=== PATIENT | male | born 1955 | race Caucasian/White ===

== ENCOUNTER 2024-03-20 12:45 | Outpatient (CLI) | payer MEDICARE, SELFPAY ==
--- NOTE | ~2024-03-20 | MR_ITS ---
EXAMINATION: MR knee RT wo con, MR femur RT wo con DATE: 03/20/2024 14:20 INDICATION: Right leg and knee pain and swelling post injury TECHNIQUE: Line 1. Magnetic resonance imaging (MRI) of the right femur was performed without intravenous contrast. Se quences included axial, sagittal and coronal T1-weighted FSE and fluid sensitive FSE STIR. 2. MRI of the right knee was performed without intravenous contrast. Sequences included coronal PD-w eighted FSE, coronal PD-weighted FS FSE, sagittal T2-weighted FSE, sagittal PD-weighted FS FSE and ax ial PD weighted fat saturated FSE. COMPARISON: None. FINDINGS: Medial compartment: Complex tear of the medial meniscus with longitudinal horizontal component at the posterior horn exte nding to and oblique radial tear plane at the posterior body. Partial-thickness cartilage loss with m ild chondral surface irregularity along the anterior to central weightbearing medial femoral condyle. Additional mild partial-thickness cartilage loss with smooth chondral surface along the medial tibia l plateau. Lateral compartment: Lateral meniscus is normal. Small region of partial-thickness chondral fissuring at the medial aspect of the lateral tibial plateau. Mild partial-thickness cartilage loss with smooth chondral surface al katherine the posterior weightbearing lateral femoral condyle. Patellofemoral compartment: Patellar cartilage is normal. Deep chondral fissuring without degenerative subchondral changes at the trochlear groove. Ligaments and tendons: The anterior cruciate ligament demonstrates a normal angle relative to Blum[place]at line. It appears th ickened with increased intrasubstance signal surrounding intact appearing linear fibers with a celer y stalk appearance. The posterior cruciate ligament is normal. The medial collateral ligament and fi bular collateral ligament complex are normal. The extensor mechanism is normal. The visualized medial and lateral hamstring tendons as well as the iliotibial band are normal. Fluid: Minimal right knee joint effusion with mild synovitis at the suprapatellar pouch. No loose osteochond ral bodies identified. Osseous/other: Normal marrow signal. No fracture or pathologic marrow replacing process. IMPRESSION: 1. 1. Complex medial meniscal tear. 2. Thickening and increased intrasubstance signal of the anterior cruciate ligament which maintains a normal angle relative to bone consistent with mucoid degeneration without definitive tear. Correlate with physical exam to assess for degree of functional integrity. 3. 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 Reviewed, dictated and finalized at location B. IMPRESSION: 1. 1. Complex medial meniscal tear. 2. Thickening and increased intrasubstance signal of the anterior cruciate liga ment which maintains a normal angle relative to bone consistent with mucoid deg eneration without definitive tear. Correlate with physical exam to assess for d egree of functional integrity. 3. Mild tricompartmental osteoarthritis with regions of moderate grade chondrom alacia most prominent in the medial compartment and along the trochlear groove.
== END 2024-03-20 12:46 ==
PROVIDERS: PCP Family Medicine; Visit Provider Orthopaedic Surgery
DX: S83.231A Complex tear of medial meniscus, current injury, right knee, initial encounter (principal); X58.XXXA Exposure to other specified factors, initial encounter; M17.11 Unilateral primary osteoarthritis, right knee
CPT/HCPCS: 73718; 73721